=== PATIENT | female | born 1995 | race Caucasian/White ===

== ENCOUNTER 2017-08-22 13:26 | Outpatient (CLI) | payer MEDICAID, SELFPAY ==
[2017-08-22 13:51] VITALS: BMI 37.0
[2017-08-22 14:08] VITALS: BP 86/47; PULSE 137; RESP 18; TEMP 37.1; O2SAT 98; BMI 36.8
[2017-08-22 14:37] LABS: Appearance,Urine Cloudy (Clear); Color,Urine Yellow (Yellow); Microscopic, Urine URINE MICROSCOPIC (MICROSCOPIC); Specific Gravity, Urine 1.025 (1.005-1.030)
[2017-08-22 14:38] LABS: Blood, Urine Negative (Negative); Glucose,Urine (UA) Negative (Negative); Ketones,Urine Trace (Negative); Nitrate,Urine Positive (Negative); Protein,Urine 1+ (Negative)
[2017-08-22 14:41] LABS: Bilirubin,Urine Negative (Negative); Leukocyte Esterase,Urine 2+ (Negative)
[2017-08-22 14:42] LABS: Fetal Membrane Rupture (Rapid) Negative (Negative)
[2017-08-22 14:50] VITALS: BP 108/51
[2017-08-22 14:57] LABS: Fetal Fibronectin (Rapid) Negative (Negative)
[2017-08-22 14:58] LABS: Bacteria,Urine 4+ /lpf; Calcium Oxalate Crystals,Urine 2+ /lpf; RBC,Urine Occasional #/hpf (0-3); Squamous Epithelial Cell,Urine TNTC #/hpf (0-5); WBC,Urine 20-50 #/hpf (0-3)
== END 2017-08-22 15:18 | disposition home or self-care (01) ==
LOC: OBOUT 13:30 → OB 13:31
PROVIDERS: Obstetrics & Gynecology; Visit Provider Nurse Practitioner Obstetrics & Gynecology
DX: O26.93 Pregnancy related conditions, unspecified, third trimester (principal); Z3A.29 29 weeks gestation of pregnancy; O42.90 Premature rupture of membranes, unspecified as to length of time between rupture and onset of labor, unspecified weeks of gestation
CPT/HCPCS: 59025; 81001; 82731; 84112; 87086

== ENCOUNTER 2017-09-06 12:59 | Outpatient (CLI) | payer MEDICAID, SELFPAY ==
[2017-09-06 13:15] VITALS: BP 139/79; PULSE 133; RESP 16; TEMP 36.4; O2SAT 100
[2017-09-06 13:18] VITALS: BMI 37.4
[2017-09-06 13:20] VITALS: BP 139/79; PULSE 131; RESP 16; TEMP 36.4; O2SAT 100; BMI 37.4
[2017-09-06 13:36] LABS: Microscopic, Urine URINE MICROSCOPIC (MICROSCOPIC)
[2017-09-06 13:39] LABS: Appearance,Urine CLOUDY (Clear); Blood, Urine Negative (Negative); Color,Urine YELLOW (Yellow); Glucose,Urine (UA) Negative (Negative); Ketones,Urine TRACE (Negative); Leukocyte Esterase,Urine 2+ (Negative); Nitrate,Urine Negative (Negative); Protein,Urine 1+ (Negative); Specific Gravity, Urine 1.025 (1.005-1.030)
[2017-09-06 13:46] LABS: Bilirubin,Urine Negative (Negative)
[2017-09-06 14:06] LABS: Bacteria,Urine 2+ /lpf; Mucus,Urine 1+ /lpf; RBC,Urine Occasional #/hpf (0-3)
[2017-09-06 14:07] LABS: Calcium Oxalate Crystals,Urine 2+ /lpf
== END 2017-09-06 14:50 | disposition home or self-care (01) ==
LOC: OBOUT 13:01 → OB 13:03
PROVIDERS: PCP Nurse Practitioner Family; Visit Provider Nurse Practitioner Obstetrics & Gynecology
DX: O60.03 Preterm labor without delivery, third trimester (principal); Z3A.32 32 weeks gestation of pregnancy
CPT/HCPCS: 59025; 81001; 87086; 96372

== ENCOUNTER 2017-09-07 14:24 | Outpatient (CLI) | payer MEDICAID, SELFPAY ==
[2017-09-07 14:34] VITALS: BP 126/57; PULSE 110; RESP 20; TEMP 36.8; O2SAT 98; BMI 37.4
[2017-09-07 15:00] VITALS: BP 116/67; PULSE 116; RESP 18; O2SAT 97
== END 2017-09-07 15:02 | disposition home or self-care (01) ==
LOC: OBOUT 14:25 → OB 14:26
PROVIDERS: PCP Nurse Practitioner Family; Visit Provider Nurse Practitioner Obstetrics & Gynecology
DX: O60.03 Preterm labor without delivery, third trimester (principal); Z3A.32 32 weeks gestation of pregnancy
CPT/HCPCS: 96372

== ENCOUNTER 2017-09-13 14:38 | Outpatient (CLI) | payer MEDICAID, SELFPAY ==
[2017-09-13 14:48] VITALS: BP 122/68; PULSE 112; RESP 17; TEMP 36.7; O2SAT 98; BMI 35.7
[2017-09-13 14:49] VITALS: BMI 35.7
[2017-09-13 15:37] LABS: Microscopic, Urine URINE MICROSCOPIC (MICROSCOPIC)
[2017-09-13 15:43] LABS: Appearance,Urine CLOUDY (Clear); Bilirubin,Urine Negative (Negative); Blood, Urine TRACE-I (Negative); Color,Urine YELLOW (Yellow); Glucose,Urine (UA) Negative (Negative); Ketones,Urine TRACE (Negative); Leukocyte Esterase,Urine 2+ (Negative); Nitrate,Urine Negative (Negative); PH,Urine 6.5 (5.0-8.5); Protein,Urine TRACE (Negative); Specific Gravity, Urine 1.025 (1.005-1.030); Urobilinogen,Urine 0.2 EU/dl (0.2)
[2017-09-13 16:23] LABS: Bacteria,Urine 4+ /lpf; Squamous Epithelial Cell,Urine TNTC #/hpf (0-5); WBC,Urine 20-50 #/hpf (0-3)
== END 2017-09-13 17:45 | disposition home or self-care (01) ==
LOC: OBOUT 14:40 → OB 14:41
PROVIDERS: PCP Nurse Practitioner Family; Visit Provider Nurse Practitioner Obstetrics & Gynecology
DX: O60.03 Preterm labor without delivery, third trimester (principal); Z3A.33 33 weeks gestation of pregnancy
CPT/HCPCS: 59025; 81001; 87086; 96360; 96367; J0290

== ENCOUNTER 2017-09-22 11:28 | Outpatient (CLI) | payer MEDICAID, SELFPAY ==
[2017-09-22 12:00] VITALS: BP 112/67; PULSE 118; RESP 18; TEMP 36.6; O2SAT 97
[2017-09-22 12:02] VITALS: BP 112/67; PULSE 118; RESP 18; TEMP 36.6; O2SAT 97; BMI 37.8
--- NOTE | 2017-09-22 12:57 | HMH.ACPN2 ---
Internal Medicine - PN: Subj *Date: 09/22/17 *Time: 12:57 Interval history: She is a 22-year-old 2 para 1 at 34 weeks gestational age. She complains of pressure and occasional contractions. She was concerned about a urinary tract infection. Exam Vital signs and Labs for Last 24 Hours: Temp Pulse Resp BP Pulse Ox 97.8 F 118 H 18 112/67 97 09/22/17 12:02 09/22/17 12:02 09/22/17 12:02 09/22/17 12:02 09/22/17 12:02 I & O for Last 24 hours: Intake & Output 09/20/17 09/21/17 09/22/17 09/23/17 11:59 11:59 11:59 11:59 Weight 220 lb - Constitutional no acute distress Assessment and Plan (1) labor in third trimester Current visit: Yes Status: Acute Category: Medical Code(s): O60.03 - labor without delivery, third trimester - Assessment and plan all Dx Assessment and Plan for all problems:: She is just feeling pressure but her cervix has not changed. She remains at 2 cm 50% -3. Her urinalysis is pending. There are no contractions on the monitor and the nonstress test is reactive. We will send her home with rest. He is to drink plenty of fluids.
[2017-09-22 13:32] LABS: Microscopic, Urine URINE MICROSCOPIC (MICROSCOPIC)
[2017-09-22 13:45] LABS: Appearance,Urine SL CLOUDY (Clear); Blood, Urine Negative (Negative); Glucose,Urine (UA) TRACE (Negative); Ketones,Urine Negative (Negative); Leukocyte Esterase,Urine TRACE (Negative); Nitrate,Urine POSITIVE (Negative); PH,Urine 6.5 (5.0-8.5); Protein,Urine 1+ (Negative)
[2017-09-22 14:20] LABS: Bilirubin,Urine Negative (Negative); RBC,Urine Occasional #/hpf (0-3)
[2017-09-22 14:21] LABS: Bacteria,Urine 1+ /lpf; Mucus,Urine 1+ /lpf; Squamous Epithelial Cell,Urine 50-100 #/hpf (0-5)
[2017-09-22 14:24] LABS: Color,Urine Amber (Yellow)
== END 2017-09-22 14:40 | disposition home or self-care (01) ==
LOC: OBOUT 11:29 → OB 11:31
PROVIDERS: PCP Nurse Practitioner Family; Visit Provider Nurse Practitioner Obstetrics & Gynecology
DX: Z34.90 Encounter for supervision of normal pregnancy, unspecified, unspecified trimester (principal)
CPT/HCPCS: 59025; 81001

== ENCOUNTER 2017-09-25 15:52 | Outpatient (CLI) | payer MEDICAID, SELFPAY ==
[2017-09-25 16:26] VITALS: BMI 37.4
[2017-09-25 16:27] VITALS: BP 126/69; PULSE 134; RESP 20; TEMP 36.6; O2SAT 97; BMI 37.4
[2017-09-25 17:15] LABS: Fetal Membrane Rupture (Rapid) Negative (Negative)
[2017-09-25 17:34] LABS: Microscopic, Urine URINE MICROSCOPIC (MICROSCOPIC)
[2017-09-25 17:35] LABS: Appearance,Urine TURBID (Clear); Blood, Urine Negative (Negative); Color,Urine YELLOW (Yellow); Glucose,Urine (UA) Negative (Negative); Ketones,Urine TRACE (Negative); Leukocyte Esterase,Urine 2+ (Negative); Nitrate,Urine Negative (Negative); PH,Urine 6.5 (5.0-8.5); Protein,Urine 1+ (Negative)
[2017-09-25 17:36] LABS: Bilirubin,Urine Negative (Negative)
[2017-09-25 17:43] LABS: Bacteria,Urine 4+ /lpf; Squamous Epithelial Cell,Urine TNTC #/hpf (0-5); WBC,Urine TNTC #/hpf (0-3)
== END 2017-09-25 19:50 | disposition home or self-care (01) ==
LOC: OBOUT 15:54 → OB 15:55
PROVIDERS: PCP Nurse Practitioner Family; Visit Provider Obstetrics & Gynecology
DX: O26.893 Other specified pregnancy related conditions, third trimester (principal); Z3A.34 34 weeks gestation of pregnancy
CPT/HCPCS: 59025; 81001; 84112; 87086; 93005; 96360; 96361

== ENCOUNTER 2017-09-30 19:25 | Outpatient (CLI) | payer MEDICAID, SELFPAY ==
[2017-09-30 19:34] VITALS: BP 137/83; PULSE 122; RESP 18; TEMP 36.2; O2SAT 99; BMI 37.8
[2017-09-30 20:19] LABS: Microscopic, Urine URINE MICROSCOPIC (MICROSCOPIC)
[2017-09-30 20:22] LABS: Appearance,Urine CLOUDY (Clear); Bilirubin,Urine Negative (Negative); Blood, Urine Negative (Negative); Color,Urine YELLOW (Yellow); Glucose,Urine (UA) Negative (Negative); Ketones,Urine 2+ (Negative); Leukocyte Esterase,Urine 2+ (Negative); Nitrate,Urine Negative (Negative); PH,Urine 6.5 (5.0-8.5); Protein,Urine Negative (Negative); Specific Gravity, Urine 1.025 (1.005-1.030)
--- NOTE | 2017-09-30 20:30 | PC.NURSE ---
20 G IV inserted in rac by this nurse, first attempt successful. tolerated well. LR 1000ml fluid bolus initiated
[2017-09-30 20:42] LABS: WBC,Urine 20-50 #/hpf (0-3)
[2017-09-30 20:43] LABS: Bacteria,Urine 3+ /lpf; Squamous Epithelial Cell,Urine TNTC #/hpf (0-5)
--- NOTE | 2017-09-30 21:15 | PC.NURSE ---
IV D/C'd from RAC tolerated well, catheter intact
== END 2017-09-30 21:20 | disposition home or self-care (01) ==
LOC: OBOUT 19:27 → OB 19:28
PROVIDERS: PCP Nurse Practitioner Family; Visit Provider Nurse Practitioner Obstetrics & Gynecology
DX: O60.03 Preterm labor without delivery, third trimester (principal); Z3A.35 35 weeks gestation of pregnancy
CPT/HCPCS: 59025; 81001; 87086; 96360; 96372

== ENCOUNTER → 2017-10-03 17:17 | Outpatient (REF) | payer MEDICAID, SELFPAY | LOC: LAB 17:17 | PROVIDERS: Visit Provider Nurse Practitioner Obstetrics & Gynecology | DX: Z34.90 Encounter for supervision of normal pregnancy, unspecified, unspecified trimester (principal) | CPT/HCPCS: 86403 ==

== ENCOUNTER 2017-10-08 09:13 | Outpatient (CLI) | payer MEDICAID, SELFPAY ==
[2017-10-08 09:26] VITALS: BP 105/60; PULSE 115; RESP 18; TEMP 36.7; O2SAT 97; BMI 37.4
[2017-10-08 09:42] LABS: Appearance,Urine CLOUDY (Clear); Bilirubin,Urine Negative (Negative); Blood, Urine 1+ (Negative); Color,Urine YELLOW (Yellow); Glucose,Urine (UA) Negative (Negative); Ketones,Urine Negative (Negative); Leukocyte Esterase,Urine 2+ (Negative); Microscopic, Urine URINE MICROSCOPIC (MICROSCOPIC); Nitrate,Urine Negative (Negative); Protein,Urine Negative (Negative); Urobilinogen,Urine 0.2 EU/dl (0.2)
[2017-10-08 10:02] LABS: Bacteria,Urine 4+ /lpf; Mucus,Urine 1+ /lpf; WBC,Urine 20-50 #/hpf (0-3)
== END 2017-10-08 11:56 | disposition home or self-care (01) ==
LOC: OBOUT 09:17 → OB 09:21
PROVIDERS: PCP Nurse Practitioner Family; Visit Provider Obstetrics & Gynecology
DX: O60.03 Preterm labor without delivery, third trimester (principal); Z3A.36 36 weeks gestation of pregnancy
CPT/HCPCS: 59025; 81001; 87086

== ENCOUNTER 2017-10-13 03:40 | Inpatient (IN) | payer MEDICAID, SELFPAY ==
[2017-10-13 03:29] VITALS: BMI 37.8
--- NOTE | 2017-10-13 03:52 | HMH.OBAPHP ---
OB - H&P: HPI Antepartum - History of Present Illness Chief complaint: Contractions, active labor - History of Present Criteria for establishing EDC:: LMP confirmed by 1st trimester US care: good care Ultrasounds: normal 1st trimester US, normal mid trimester US Obstetrical complications: labor Medical complications: none Planning to breastfeed?: No [facility] History I have reviewed the patient's past medical history: Yes Medical History: Reports:: Arrhythmia, Diabetes Mellitus Type 2 Denies:: Cancer, Diabetes Mellitus Type 1, MRSA Laterality Cases: Bilateral: Other Other Surgeries: Yes: No Previous Surgery Amputation: No Fractures: No - *Social History Smoking Status: Never smoker Alcohol Intake: former Substance Use Type: denies use Occupational Status: unemployed Housing: apartment Household Members: spouse *Family Hx:: Cancer, Diabetes, Heart Attack, Hypertension Review of Systems - Review of Systems Review of systems:: pertinent systems reviewed and negative unless documented below Meds Home Medications Medication Instructions Recorded Confirmed Type ferrous sulfate 325 mg (65 mg 325 mg PO ONCE tab 08/12/17 09/30/17 History iron) tablet 1 tab PO QDAY 08/12/17 09/30/17 History vitamin,calcium,rgjvszrq-isjd-qsvtj acid tablet ranitidine 150 mg tablet 100 mg PO BID tab 08/12/17 09/30/17 History Pyridium 200 mg PO TID 09/22/17 09/22/17 History Allergies Allergy/AdvReac Type Severity Reaction Status Date / Time cefaclor [From Ceclor] Allergy Mild UNKNOWN, Verified 10/10/17 10:15 PATIENT WAS VERY YOUNG OB - H&P: Exam - Constitutional mild distress OB - A/P Antepartum (1) Current visit: No Status: Acute (2) labor in third trimester Current visit: No Status: Acute - Additional Plan Plan: expectant management Planning to breastfeed?: No
[2017-10-13 03:53] LABS: Eosinophils # 0.1 K/mm3 (0.0-0.4); Eosinophils % 0.6 % (0.1-12.0); Hematocrit 34.5 % (37.0-47.0); Hemoglobin 10.8 g/dL (12.2-16.2); Lymphocytes # 1.3 K/mm3 (0.7-4.5); Lymphocytes % 11.6 K/mm3 (10-50); Mean Corpuscular HGB Conc 31.4 g/dL (31.8-35.4); Mean Corpuscular Hemoglobin 25.5 pg (27.0-31.2); Mean Corpuscular Volume 81.3 fl (81-99); Mean Platelet Volume 8.1 fl (7.4-10.4); Monocytes # 0.6 K/mm3 (0.1-1.0); Monocytes % 5.7 % (1.7-9.3); Neutrophils # 9.2 K/mm3 (1.8-7.8); Neutrophils % 82.1 % (37.0-80.0); Platelet Count 252 K/mm3 (142-424); Red Blood Count 4.24 M/mm3 (4.20-5.40); Red Cell Distribution Width 14.7 % (11.5-17.5); White Blood Count 11.2 K/mm3 (4.8-10.8)
--- NOTE | 2017-10-13 03:54 | HMH.LABNOT ---
Labor Note - Subjective: Date: 10/13/17 Time: 03:54 regular contraction - Objective: NST:: Non-reactive Contractions:: every 2-3 minutes Cervical Dilation:: 8-9 Effacement:: 100% Station: 0 Membranes: articially ruptured - Fetus: Monitoring?: Yes monitoring type:: External - Assessment: Labor progressing?: Yes Cephalopelvic disproportion?: No Patient Problems: All Active Problems labor in third trimester (Acute) (Acute) - Plan: Anesthesia for epidural?: No Continue to labor down?: Yes Plan for ?: No Continue to monitor?: Yes Start pushing?: No Comment:: She came in in active labor and was found to be 9 cm dilated. I ruptured her membranes and there was clear fluid. She is 8-9 cm. We have given her some pain medicine to see if the baby's head will come down just a little bit more before she starts pushing.
--- NOTE | 2017-10-13 04:25 | P.PCN_ITS ---
- Delivery Note Delivery Date:: 10/13/17 Delivery Time:: 04:14 Anesthesia Type: None Was labor medically induced?: No Induction method: none Gestational age (weeks): 37 delivered prior to 39 weeks?: Yes Justification for early elective delivery:: Active Labor Infant Gender: Male at 1 minute: 9 at 5 minutes: 9 AF:: Clear fluid Delivery Procedure:: She is a 22-year-old 2 now para 2 who is 37 weeks gestational age. She came in in active labor and was found to be 9 cm dilated. She had her membranes ruptured and there was clear fluid. She progressed rapidly to full dilation and delivered spontaneously a liveborn male child at 4: 14 AM on the morning of October 13, 2017. On deliver the head the anterior shoulder then delivered followed by the rest of the infant's body atraumatically. The oropharynx and nasopharynx were bulb suctioned. The baby cried spontaneously. We allowed the cord to continue to pulsate for approximately 1 minute. We then doubly clamped the cord and cut the cord. The was then handed off to nurses who assigned Apgars of 9 at 1 minute and 9 at 5 minutes. We then obtained cord blood as well as cord pH. The pH is currently pending. Using gentle traction on the cord and countertraction on the fundus the placenta easily delivered. He had a normal three-vessel cord. There were no vaginal or perineal lacerations. Her estimated blood loss was approximately 400 cc. Placental Delivery Description: Spontaneous
[2017-10-13 04:27] LABS: Cord Blood PH 7.27 (7.35-7.45)
[2017-10-13 06:12] VITALS: BP 104/84; PULSE 132; RESP 22; TEMP 36.4; O2SAT 100; BMI 37.8
--- NOTE | 2017-10-13 14:38 | SW/DCPLANNER ---
Addendum entered by Krysta Stevens 10/14/17 13:08: Followed up with Central Intake regarding ID# and this case did NOT meet criteria. Original Note: Received referral regarding open case with patients first child. Went in and spoke with mother and infants father. male was delivered on 10/13/17 Isacc Carter and one year old son is Moo Carter. There is an open social service case with one year old due to roaches and gnats in home and removed child from home for three weeks. father is Moo Carter 10/30/93. Address that mother, father, two children, and fathers child currently resides at [address] [place] [id number] in [facility]. Patient is currently enrolled with [employer] and [employer]. Patient has stated that they do have carseat, crib, clothing and diapers. Plan is for patient to discharge on Tuesday. This has been reported to central intake and ID is [id number].
[2017-10-14 06:44] LABS: Hematocrit 28.4 % (37.0-47.0)
--- NOTE | 2017-10-14 08:53 | HMH.ACPN2 ---
Internal Medicine - PN: Subj *Date: 10/14/17 *Time: 08:53 Interval history: She is doing well this morning. She is eating and drinking and ambulating. She is bottlefeeding. Exam Vital signs and Labs for Last 24 Hours: Temp Pulse Resp BP Pulse Ox 97.6 F 132 H 22 104/84 100 10/13/17 06:12 10/13/17 06:12 10/13/17 06:12 10/13/17 06:12 10/13/17 06:12 Laboratory Results - last 24 hr 10/14/17 06:09: Hgb 9.0 L, Hct 28.4 L I & O for Last 24 hours: Intake & Output 10/11/17 10/12/17 10/13/17 10/14/17 11:59 11:59 11:59 11:59 Weight 220 lb - Constitutional no acute distress Assessment and Plan (1) Current visit: No Status: Acute Qualifiers: Weeks of gestation: 36 weeks Qualified Code(s): Z3A.36 - 36 weeks gestation of Category: Medical Code(s): Z34.90 - Encounter for supervision of normal , unspecified, unspecified trimester (2) labor in third trimester Current visit: No Status: Acute Category: Medical Code(s): O60.03 - labor without delivery, third trimester - Assessment and plan all Dx Assessment and Plan for all problems:: She is doing well this morning. We will send her home tomorrow.
--- NOTE | 2017-10-15 15:08 | HMH.DCSUM ---
General - General Admission date: 10/13/17 Discharge date: 10/15/17 HPI HPI: per H&P Hospital Course Hospital Course: normal labor and vaginal delivery. course uncomplicated. Progressed to regular diet, ambulating and voiding without difficulty. Discharge home PPD #2. Objective Vital signs: Temp Pulse Resp BP Pulse Ox 97.6 F 132 H 22 104/84 100 10/13/17 06:12 10/13/17 06:12 10/13/17 06:12 10/13/17 06:12 10/13/17 06:12 no acute distress - *Routine Abdominal Exam Present: soft (fundus firm at umbilicus) - *Routine Skin Exam Present: intact, dry, warm - *Routine Neurological Exam Present: alert, oriented X3 - Routine Psychiatric Exam Present: normal affect DS: Diagnosis - Discharge Diagnosis (1) Normal vaginal delivery Status: Acute Problem details: discharge home ppd #2 (2) Anemia associated with acute blood loss Status: Acute Problem details: continue PNV with additional feso4 supplementation Discharge Plan - Patient Discharge Instructions ACTIVITY: Ambulate as tolerated, Limited activity, No heavy lifting DIET: advance to your usual diet Patient Instructions: Sudden Syndrome, Labor and Delivery, Vaginal , Covering of Head During Sleep Associated With Increase Risk of SIDS, How to Bathe Your [place], How to Change Your [place]'s Diaper, How to Hold Your [place] Baby, How to Lay Your [place] Down to Sleep, How to Take Your [place]'s Temperature-Rectal, [facility] Shaken Baby Syndrome - Follow up Plan Disposition: Home, Self-[facility] Medications: Home Medications Medication Instructions Recorded Confirmed Type ranitidine 150 mg tablet 150 mg PO BID tab 08/12/17 10/14/17 History Prescriptions/Medication Reconciliation: New Ibuprofen [Motrin 400mg tablet] 600 mg PO Q6HP PRN #30 tablet PRN Reason: Mild To Moderate Pain Vits96/Iron Fum/Folic [ MVI w/Iron Tablet] 1 each PO 1700 tablet Acetaminophen [Acetaminophen 325mg tab] 650 mg PO Q4HP PRN tablet PRN Reason: Mild Pain Continue ranitidine 150 mg tablet 150 mg PO BID tab
--- NOTE | 2017-10-15 16:02 | P.DS_ITS ---
General - General Admission date: 10/13/17 Discharge date: 10/15/17 HPI HPI: per H&P Hospital Course Hospital Course: normal labor and vaginal delivery. course uncomplicated. Progressed to regular diet, ambulating and voiding without difficulty. Discharge home PPD #2. Objective Vital signs: Temp Pulse Resp BP Pulse Ox 97.6 F 132 H 22 104/84 100 10/13/17 06:12 10/13/17 06:12 10/13/17 06:12 10/13/17 06:12 10/13/17 06:12 no acute distress - *Routine Abdominal Exam Present: soft (fundus firm at umbilicus) - *Routine Skin Exam Present: intact, dry, warm - *Routine Neurological Exam Present: alert, oriented X3 - Routine Psychiatric Exam Present: normal affect DS: Diagnosis - Discharge Diagnosis (1) Normal vaginal delivery Status: Acute Problem details: discharge home ppd #2 (2) Anemia associated with acute blood loss Status: Acute Problem details: continue PNV with additional feso4 supplementation Discharge Plan - Patient Discharge Instructions ACTIVITY: Ambulate as tolerated, Limited activity, No heavy lifting DIET: advance to your usual diet Patient Instructions: Sudden Syndrome, Labor and Delivery, Vaginal , Covering of Head During Sleep Associated With Increase Risk of SIDS, How to Bathe Your [place], How to Change Your [place]'s Diaper, How to Hold Your [place] Baby, How to Lay Your [place] Down to Sleep, How to Take Your [place]'s Temperature-Rectal, [facility] Shaken Baby Syndrome - Follow up Plan Disposition: Home, Self-[facility] Medications: Home Medications Medication Instructions Recorded Confirmed Type ranitidine 150 mg tablet 150 mg PO BID tab 08/12/17 10/14/17 History Prescriptions/Medication Reconciliation: New Ibuprofen [Motrin 400mg tablet] 600 mg PO Q6HP PRN #30 tablet PRN Reason: Mild To Moderate Pain Vits96/Iron Fum/Folic [ MVI w/Iron Tablet] 1 each PO 1700 tablet Acetaminophen [Acetaminophen 325mg tab] 650 mg PO Q4HP PRN tablet PRN Reason: Mild Pain Continue ranitidine 150 mg tablet 150 mg PO BID tab
== END 2017-10-15 16:55 | disposition home or self-care (01) | DRG 775 ==
LOC: OBOUT 03:41
PROVIDERS: Admitting Provider Nurse Practitioner Obstetrics & Gynecology; PCP Nurse Practitioner Family; Visit Provider Nurse Practitioner Obstetrics & Gynecology
DX: O60.23X0 Term delivery with preterm labor, third trimester, not applicable or unspecified (principal); Z37.0 Single live birth; Z3A.37 37 weeks gestation of pregnancy
CPT/HCPCS: 59409; 59025; 82800; 85014; 85018; 85025; 86850; J0595

== ENCOUNTER → 2018-07-06 14:26 | Outpatient (CLI) | payer MEDICAID, SELFPAY ==
[2018-07-06 16:57] LABS: HCG,Quantitative 0 mIU/mL
== END ==
PROVIDERS: Visit Provider Nurse Practitioner Obstetrics & Gynecology
DX: Z34.90 Encounter for supervision of normal pregnancy, unspecified, unspecified trimester (principal)
CPT/HCPCS: 36415; 84702

== ENCOUNTER → 2018-08-25 12:37 | Outpatient (CLI) | payer MEDICAID, SELFPAY ==
[2018-08-25 15:16] LABS: HCG,Quantitative 0 mIU/mL
== END ==
PROVIDERS: Visit Provider Nurse Practitioner Obstetrics & Gynecology
DX: Z34.90 Encounter for supervision of normal pregnancy, unspecified, unspecified trimester (principal)
CPT/HCPCS: 36415; 84702

== ENCOUNTER 2025-04-30 10:41 | Outpatient (CLI) | payer MEDICAID, SELFPAY ==
[2025-04-30 21:21] LABS: HCG Qualitative, Serum Negative (Negative)
[2025-04-30 22:06] LABS: Hepatitis C Ab Qual. W/ RFX NEGATIVE (Negative)
--- OUTSIDE RECORDS SUMMARY | 2025-05-01 09:21 | XMS_ITS | Clinical Summary ---
Author Organization [facility] Address [address] [place] [address] Care Team Providers Care Nurseryperson Name Role Phone Provider, No Known Primary Care Provider Unavail able Allergies Active Allergy Reactions Criticality Noted Date Comments Cefaclor Hives,Other (See Comments) Low 1 unsure Medications glucose monitor monitoring kitIndications: GDM (gestational diabetes mellitus), class A1 Check fasting blood sugar every morning. Then check blood sugar two hours after each meal. Record and bring with you to next visit. 1 each 4 Active Additional Information Patient not taking.Reported on 02/06/2024 Blood Glucose Monitoring Suppl (OneTouch Verio Reflect) w/Device kit USE DIRECTED TO CHECK BLOOD SUGAR TWO HOURS AFTER EACH MEAL RECORD AND BRING WITH YOU TO NEXT VISIT 4 Active Vit-Fe Fumarate-FA ( 27-1) 27-1 MG tablet tablet Take by mouth Daily. Active acetaminophen (TYLENOL) 325 MG tablet Take 2 tablets by mouth Every 6 (Six) Hours As Needed for Mild Pain. 60 tablet 1 02/29/2024 3:37 PM EDT 4 Active docusate sodium (COLACE) 100 MG capsule Take 1 capsule by mouth 2 (Two) Times a Day As Needed for Constipation. 60 capsule 01/26/2024 12:28 PM EDT 4 Active ibuprofen (ADVIL,MOTRIN) 600 MG tablet Take 1 tablet by mouth Every 6 (Six) Hours As Needed for Mild Pain. 60 tablet 1 01/26/2024 12:28 PM EDT 4 Active Ferrous Sulfate Dried ER (Slow Iron) 160 (50 Fe) MG tablet controlled-rele ase Take 1 tablet by mouth Daily. 30 each 12 4 Active Active Problems Problem Noted Date Diagnosed Date Transportation insecurity 01/26/2024 heart rate deceleratio ns affecting management of mother 01/23/2024 uterine contractions in third trimester, antepartum 01/16/2024 tachycardia affecting management of mother 01/06/2024 Gestational diabetes mellitus (GDM), antepartum 01/02/2024 Assessment & Plan (01/16/2024 6:23 PM EDT): Patient is infrequently checking her blood sugars and is not watching what she eats. She reports that her fasting blood sugars are 90's and that her post-prandial values are 125-130's. Baby is demonstrating accelerated growth. Reviewed goals for blood sugars with the patient and outlined again the possible adverse effects of poorly controlled blood sugar in including stillbirth, macrosomia, need for NICU admission, and increased risk of complications. Patient also reported a change in movement over the last 48hrs. Reviewed normal movement and how to do kick counts. Recommended to patient that if she is ever concerned about movement to present to Triage for evaluation. - Follow-up weekly for CHELSEY/BPP/UA Dopplers - Next growth due in 2wks - Continue twice weekly testing with primary OB - Will likely need delivery around 36/37wks secondary to unsure compliance with GDM treatment and macrosomia labor in third trimester 12/28/2023 GDM (gestational diabetes mellitus), class A1 Overview (11/21/2023): Patient failed one hour gtt twice-refused to do 3 hour. Considered gestational diabetes-supplies rx sent. Diabetes Education referral. 09/12/2023 Overview (09/12/2023): Tdap 01/04/23 Placenta previa with hemorrhage in first trimest er 08/17/2023 Assessment & Plan (01/16/2024 6:19 PM EDT): Resolved. Multigravida in second trimester 08/17/2023 Previous child with anomaly, antepartum 08/17/19 Overview (08/17/2023): 1st with hydrocephalus Assessment & Plan (10/10/2023 11:12 AM EST): Patient reports that her first child had an in utero stroke and hydrocephalus. She states that he has CP and residual issues. History of gestational diabe ifeoma in prior , currently 07/20/2023 Overview (07/20/2023): bASA Needs 1hr GTT at 12wk Assessment & Plan (10/10/2023 11:13 AM EST): Early GCT today. - Follow-up for growth scheduled in 4 wks as I suspect patient will fail her GCT Morbid obesity with BMI of 40.0-44.9, adult 07/08 Overview (09/12/2023): Hgb A1C ordered 16w2d Early 1hr gtt at 20weeks Discussed carbohydrate control Recommend limiting weight gain to 15-20lbs Recommend baby asa weeks 12-36 Growth US at 32 and 37 weeks Assessment & Plan (10/10/2023 11:12 AM EST): Patient is doing an early GCT today. She is currently taking a daily baby ASA 81mgs. Resolved Problems Problem Noted Date Diagnosed Date Resolved Date Vaginal discharge in pregnan cy in third trimester 01/02/2024 01/26/2024 Third trimester 12/20/2023 Multigravida in third trimester 12/14/2023 01/26/2024 Threatened 08/17/2023 11/18/19 8 weeks gestation of 07/20/2023 11/18/2023 Group B Streptococcus urinar y tract infection affecting , antepartum 07/20/2023 10/10/19 24 Overview (07/20/2023): Previous baby with GBS sepsis - treat in labor Immunizations Immunization Administration Dates Next Due 31-influenza Vac Quardvalent Preservativ 06/17/2022(Deferred: Patient decision),10/29/2019(Deferred: Patient decision),04/27/2016 DTaP, Unspecified 06/25/1998 Fluzone (or Fluarix & Flulav al for VFC) >6mos 05/09/2017 Hepatitis A 05/31/2019 MMR 06/25/1998 OPV 04/03/1999 Tdap 12/07/2023,01/04/2023,07/28/2016 Varicella 06/17/2022,12/23/1998 Family History Medical History Relation Name Comments No Known Problems Father Cancer Maternal Aunt Diabetes Maternal Grandmother No Known Problems Mother Relation Name Status Comments Father Alive Maternal Aunt Maternal Grandmother Mother Alive Social History Tobacco Use Types Packs/Day Years Used Date Smoking Tobacco: Never Passive Smoke Exposure: Never Smokeless Tobacco: Never Tobacco Cessation:Counseling Given: Not Answered Alcohol Use Standard Drinks/Week Comments Not Currently 0 (1 standard drink = 0.6 oz pur e alcohol) [facility] [employer] Answer Date Recorded In the past 12 months has [employer], gas, oil, or water [employer] threatened to shut off services in your home? No 01/23/2024 AUDIT-C Answer Date Recorded Q1: How often do you have a drink containing alcohol? Never 01/23/2024 Q2: How many drinks containi ng alcohol do you have on a typical day when you are drinking? Patient does not drink Q3: How often do you have si x or more drinks on one occasion? Never 01/23/2024 Overall Financial Resource Strain (CARDIA) Answe r Date Recorded How hard is it for you to pa y for the very basics like food, housing, medical care, and heating? Not hard at all 01/23/2024 [facility] [place] of Occupat ional Health - Occupational Stress Questionnaire Answer Date Recorded Do you feel stress - tense, restless, nervous, or anxious, or unable to sleep at night because your mind is troubled all the time - these days? Only a little 01/23/2024 Exercise Vital Sign Answer Date Recorde d On average, how many days pe r week do you engage in moderate to strenuous exercise (like a brisk walk)? 7 days 01/23/2024 On average, how many minutes do you engage in exercise at this level? 30 min 01/23/2024 Hunger Vital Sign Answer Date Recorded Within the past 12 months, y ou worried that your food would run out before you got the money to buy more. Never true 01/23/20 24 Within the past 12 months, t he food you bought just didn't last and you didn't have money to get more. Never true 01/23/2024 PRAPARE - Transportation Answer Date Re corded In the past 12 months, has l ack of transportation kept you from medical appointments or from getting medications? No 01/06 In the past 12 months, has l ack of transportation kept you from meetings, work, or from getting things needed for daily living? No 01/23/2024 [place] Depression Scale Answer Date Recorded Retired [place] Depression Score 2 02/07/2024 Retired EPD Scale: Thought of Harming Self Unrec ognized value 02/07/2024 Abuse Screen Answer Date Recorded Feels Unsafe at Home or Work/School no 01/23/2024 Feels Threatened by Someone no 01/06 Does Anyone Try to Keep You From Having Contact with Others or Doing Things Outside Your Home? no 01/23/2024 Physical Signs of Abuse Present no 01/23/2024 Housing Stability Answer Date Recorded Current Living Arrangements apartment 01/06 Potentially Unsafe Housing Conditions none 01/23/2024 Family and Community Support Answer Remi e Recorded If for any reason you need h elp with day-to-day activities such as bathing, preparing meals, shopping, managing finances, etc., do you get the help you need? I get all the help I need 01/23/2024 How often do you feel lonely or isolated from those around you? Rarely 01/23/2024 Employment Answer Date Recorded Do you want help finding or keeping work or a job? I do not need or want help 01/23/2024 Disabilities Answer Date Recorded Difficulty Concentrating, Remembering or Making Decisions no 01/23/2024 Difficulty Managing Errands Independently no 01/23/2024 Education Answer Date Recorded Do you want help with school or training? For example, starting or completing job training or getting a high school diploma, GED or equivalent No 01/23/2024 Preferred Language Yoruba 01/23/2024 PHQ-2 Answer Date Recorded Retired PHQ-9: Brief Depression Severity Measure Score 1 01/23/2024 Education Answer Date Recorded What is the highest level of school you have completed or the highest degree you have received? 12th grade 12/20/2023 Comments No Sex and Gender Information Value Date Recorded Sex Assigned at Not on file Legal Sex Female 2:50 PM EST Gender Identity Not on file Sexual Orientation Not on file Last Filed Vital Signs Vital Sign Reading Time Taken Comments Blood Pressure 124/82 02/06/2024 1:13 PM EDT Pulse 87 01/26/2024 7:43 AM EDT Temperature 36.4 C (97.6 F) 01/26/2024 7:43 AM EDT Respiratory Rate 16 01/26/2024 7:43 AM EDT Oxygen Saturation 100% 01/23/2024 8:15 PM EDT Inhaled Oxygen Concentration - - Weight 101 kg (223 lb 6.4 oz) 02/06/2024 1:13 PM EDT Height 162.6 cm (5' 4.02 ) 02/06/2024 1:13 PM ED T Body Mass Index 38.33 02/06/2024 1:13 PM EDT Plan of Treatment Health Maintenance Due Date Last Done Comments Annual Gynecologic Pelvic an d Breast Exam 1995 ANNUAL PHYSICAL 06/24/2023 INFLUENZA VACCINE 03/08/2025 05/09/2017, 04/27/2016 TDAP/TD VACCINES (4 - Td or Tdap) 12/06/2033 12/07/2023, 01/04/2023, 07/28/2016 HEPATITIS C SCREENING Completed 07/20/2023 Pneumococcal Vaccine 0-49 Aged Out No longer eligible based on patient's age to complete this topic Medical Devices Implanted Type Area Night Filler Device Identifier Shelf Expiration Date Model / Serial / Lot Seal Hemo Surg Nimesh/Ah Abs/Pwdr 3gm - [id number] Implanted:Qty : 1 on 01/23/2024 by Alison Arshad MD at [facility] Implant N/A: Uterus [employer] 06/04/2028 [id number] / / [id number] Procedures Procedure Name Priority Date/Time Associated Diagnosis Comments OBSTETRIC PANEL Routine 07/20/2023 10:27 AM EST 8 weeks gestation of from Last 3 Months or Most Recently Relevant to Health Maintenance Results * (ABNORMAL) Obstetric Panel (07/20/2023 10:27 AM EST) Hepatitis B Surface Ag Negative Negative [facility] Hep C Virus Ab Non Reactive Non Reactive [facility] Comment: HCV antibody alone does not differentiate between previously resolved infection and active infection. Equivocal and Reactive HCV antibody results should be followed up with an HCV RNA test to support the diagnosis of active HCV infection. RPR Non Reactive Non Reactive [facility] Rubella Antibodies, IgG 3.93 Immune >0.99 index [facility] Comment: Non-immune <0.90 Equivocal 0.90 - 0.99 Immune >0.99 ABO Type A [facility] Rh Factor Positive [facility] Comment: Please note: Prior records for this patient's ABO / Rh type are not available for additional verification. Antibody Screen Negative Negative [facility] WBC 6.3 3.4 - 10.8 x10E3/uL [facility] RBC 4.73 3.77 - 5.28 x10E6/uL [facility] Hemoglobin 11.7 11.1 - 15.9 g/dL [facility] Hematocrit 37.3 34.0 - 46.6 % [facility] MCV 79 79 - 97 fL [facility] MCH 24.7(L) 26.6 - 33.0 pg [facility] MCHC 31.4(L) 31.5 - 35.7 g/dL [facility] RDW 14.9 11.7 - 15.4 % [facility] Platelets 218 150 - 450 x10E3/uL [facility] Neutrophil Rel % 60 Not Estab. % [facility] Lymphocyte Rel % 33 Not Estab. % [facility] Monocyte Rel % 6 Not Estab. % [facility] Eosinophil Rel % 1 Not Estab. % [facility] Basophil Rel % 0 Not Estab. % [facility] Neutrophils Absolute 3.7 1.4 - 7.0 x10E3/uL [facility] Lymphocytes Absolute 2.1 0.7 - 3.1 x10E3/uL [facility] Monocytes Absolute 0.4 0.1 - 0.9 x10E3/uL [facility] Eosinophils Absolute 0.1 0.0 - 0.4 x10E3/uL [facility] Basophils Absolute 0.0 0.0 - 0.2 x10E3/uL [facility] Immature Granulocyte Rel % 0 Not Estab. % [facility] Immature Grans Absolute 0.0 0.0 - 0.1 x10E3/uL [facility] Blood 07/20/2023 10:2 7 AM EST 07/21/2023 Narrative [facility] - 07/21/2023 10:10 AM EST Performed at: 01 - [facility] [address], [place] [id number] Warehouse Foreman: Tony Mendoza PhD, Phone: [phone] Alison Arshad MD LAB BLOOD ORDERABLES Final Result [facility] [address] [place] [address], [facility] [address] [place] [address], from Last 3 Months or Most Recently Relevant to Health Maintenance Insurance [employer] Advance Directives * CPR (Attempt to Resuscitate) (Latest Code Status on File) Date Activated Date Inactivated Comments 01/23/2024 9:15 PM 01/26/2024 5:11 PM Question Answer Comments Code Status (Patient has no pulse and is not breathing): CPR (Attempt to Resuscitate) Medical Interventions (Patie nt has pulse or is breathing): Full * CPR (Attempt to Resuscitate) Date Activated Date Inactivated Comments 01/23/2024 12:58 PM 01/23/2024 9:15 PM Question Answer Comments Code Status (Patient has no pulse and is not breathing): CPR (Attempt to Resuscitate) Medical Interventions (Patie nt has pulse or is breathing): Full Support Level Of Support Discussed With: Patient * CPR (Attempt to Resuscitate) Date Activated Date Inactivated Comments 12/28/2023 4:48 PM 12/31/2023 3:02 PM Question Answer Comments Code Status (Patient has no pulse and is not breathing): CPR (Attempt to Resuscitate) Medical Interventions (Patie nt has pulse or is breathing): Full Support Level Of Support Discussed With: Patient Care Teams Nurseryperson Relationship Specialty Start Date End Date Provider, [place] [address] PCP - General 12/20/23
--- OUTSIDE RECORDS SUMMARY | 2025-05-01 09:21 | XMS_ITS | Encounter Summary ---
[facility] Organization [facility] Address [address] [place] [id number] Care Team Providers Care Battalion Chief Name Role Phone Provider, No Known Primary Care Provider Unavail able Reason for Visit * Reason Onset Date Comments documentation 02/02/2024 Encounter Details Date Type Department Care Team (Late st Contact Info) Description 02/02/2024 Telephone [facility] [address] [place] [phone] Alison Arshad MD [address] [place] [address] documentation Social History Tobacco Use Types Packs/Day Years Used Date Smoking Tobacco: Never Passive Smoke Exposure: Never Smokeless Tobacco: Never Alcohol Use Standard Drinks/Week Comments Not Currently 0 (1 standard drink = 0.6 oz pur e alcohol) [facility] Utilities Answer Date Recorded In the past 12 months has [employer], gas, oil, or water [employer] threatened to shut off services in your [...] and heating? Not hard at all 01/23/2024 [facility] [place] of Occupat ional Health - Occupational Stress [...] things needed for daily living? No 01/23/2024 [place] Depression Scale Answer Date Recorded Retired [place] Depression Score 2 02/06/2024 Retired EPD Scale: Thought of Harming Self Unrec ognized value 02/06/2024 Abuse Screen Answer Date Recorded Feels Unsafe [...] GED or equivalent No 01/23/2024 Preferred Language Hungarian 01/23/2024 PHQ-2 Answer Date Recorded Retired PHQ-9: [...] on file Sexual Orientation Not on file documented as of this encounter Plan of Treatment Not on file documented as of this encounter Visit Diagnoses Not on filedocumented in this encounter Additional Health Concerns Assessment Noted Time PHQ-2 Depression Total Score: 1 01/23/20 24 4:10 PM EDT documented as of this encounter Care Teams Battalion Chief Relationship Specialty Start Date End Date Provider, No Known [facility] [place] [address] PCP - General 12/20/23 documented as of this encounter
[2025-05-02 08:13] LABS: Hepatitis B Surface Antigen Negative (Negative)
== END 2025-04-30 23:59 | disposition home or self-care (01) ==
LOC: LAB.DROPOF 05-01 09:13
PROVIDERS: PCP Family Medicine; Visit Provider Family Medicine
DX: N93.8 Other specified abnormal uterine and vaginal bleeding (principal); Z11.4 Encounter for screening for human immunodeficiency virus [HIV]; Z11.59 Encounter for screening for other viral diseases
CPT/HCPCS: 84702; 84703; 86803; 87340; 87389